=== PATIENT | male | born 1955 | race Caucasian/White ===

== ENCOUNTER → 2017-06-29 10:25 | Outpatient (CLI) | payer OTHER, SELFPAY ==
--- NOTE | 2017-06-29 10:42 | XR_ITS ---
EXAM: XR cervical spine 5V HISTORY: Neck pain ITS.REASON: CERVICALGIA ORDERING PHYSICIAN: Rochelle Hercules PATIENT AGE: 61 years COMPARISON: 11/21/2013 FINDINGS: There is normal alignment. There is mild degenerative disc disease at C2-C3. Moderate degenerative disc disease C5-C6 and C6-C7. No fracture or dislocation. Nuchal ligament calcification is present along the lower cervical region. IMPRESSION: Degenerative disc disease greater at C5-C6 and C6-C7 slightly progressed compared to the previous exam
--- NOTE | 2017-06-29 10:42 | XR_ITS ---
EXAM: XR thoracic spine 3V HISTORY: ITS.REASON: POLYNEUROPATHY COMPARISON: 11/21/2013 FINDINGS: There is minimal upper thoracic curvature convex left. Mild multilevel degenerative disc disease is present with osteophyte formation along the lower anterior and right lateral aspect of the thoracic spine. No acute fracture or dislocation evident. No lytic or blastic change. IMPRESSION: Thoracic spine spondylosis with degenerative disc disease and osteophytosis. No change with no acute finding
--- NOTE | 2017-06-29 10:42 | XR_ITS ---
EXAM: XR lumbar spine min 4V HISTORY: Low back pain ITS.REASON: POLYNEUROPATHY ORDERING PHYSICIAN: Rochelle Hercules PATIENT AGE: 61 years COMPARISON: 11/21/2013 FINDINGS: Normal alignment. No fracture or dislocation. No lytic or blastic change. There is mild degenerative disc disease at L5-S1 which has progressed since the previous exam. There are small anterior osteophytes at L5. There are mild facet arthritic changes L5-S1. IMPRESSION: Facet arthritic change and degenerative disc disease at L5-S1 is slightly worse compared to the previous exam
[2017-06-29 10:59] LABS: Basophils # 0.1 K/mm3 (0-0.2); Basophils % 0.8 % (0.1-2.0); Eosinophils # 0.2 K/mm3 (0.0-0.4); Eosinophils % 2.1 % (0.1-12.0); Hematocrit 46.9 % (42.0-52.0); Hemoglobin 15.7 g/dL (14.1-18.0); Lymphocytes # 2.7 K/mm3 (0.7-4.5); Lymphocytes % 34.2 K/mm3 (10-50); Mean Corpuscular HGB Conc 33.4 g/dL (31.8-35.4); Mean Corpuscular Hemoglobin 30.1 pg (27.0-31.2); Mean Platelet Volume 8.1 fl (7.4-10.4); Monocytes # 0.4 K/mm3 (0.1-1.0); Monocytes % 5.1 % (1.7-9.3); Neutrophils # 4.6 K/mm3 (1.8-7.8); Neutrophils % 57.9 % (37.0-80.0); Platelet Count 232 K/mm3 (142-424); Red Blood Count 5.21 M/mm3 (4.60-6.20); Red Cell Distribution Width 13.5 % (11.5-17.5)
[2017-06-29 12:59] LABS: Alanine Aminotransferase 18 U/L (12-78); Albumin Level 3.7 gm/dL (3.4-5.0); Alkaline Phosphatase 131 U/L (46-116); Anion Gap 15.8 mEq/L (5-15); Aspartate Amino Transferase 16 U/L (15-37); Bilirubin,Total 0.5 mg/dL (0.2-1.0); Blood Urea Nitrogen 7 mg/dL (7-18); Calcium 9.5 mg/dL (8.5-10.1); Carbon Dioxide 26 mmol/L (21.0-32.0); Chloride 104 mmol/L (98-107); Creatinine,Serum 0.86 mg/dL (0.70-1.30); Estimated Glomerular Filt Rate 90 ml/min (>60); GFR (African American) 109 ML/MIN (>60); Globulin 3.8 gm/dl (1.3-3.2); Glucose 91 mg/dL (74-106); Potassium 4.8 mmoL/L (3.5-5.1); Sodium 141 mmol/L (136-145); Total Protein,Serum 7.5 gm/dL (6.4-8.2)
[2017-06-29 14:17] LABS: Chol/HDL Ratio 4.6 (1-3.5); Cholesterol 189 mg/dL (140-200); HDL Cholesterol 41 mg/dL (27-67); LDL Cholesterol 136 mg/dL (0-130); Thyroid Stimulating Hormone 3.07 uIU/ml (0.358-3.740); Triglycerides 59 mg/dL (30-200); VLDL Cholesterol 12 mg/dL (0-40)
[2017-06-29 14:49] LABS: Hemoglobin A1C 4.9 % (0.0-7.0)
[2017-06-30 13:52] LABS: Vitamin D 25 Hydroxy 21.3 ng/mL (30.0-100.0)
[2017-07-02 06:28] LABS: Vitamin B12 769 pg/mL (232-1245)
[2020-03-09 17:48] LABS: POC Glucose,Bedside 330 (70-110)
== END ==
PROVIDERS: Visit Provider Nurse Practitioner Family
DX: Z13.220 Encounter for screening for lipoid disorders (principal); Z13.6 Encounter for screening for cardiovascular disorders; G62.9 Polyneuropathy, unspecified; G89.29 Other chronic pain; M54.2 Cervicalgia; M54.9 Dorsalgia, unspecified
CPT/HCPCS: 36415; 72050; 72072; 72110; 80053; 80061; 82607; 82652; 82962; 83036; 84443; 85025